=== PATIENT | male | born 1960 | race Caucasian/White ===

== ENCOUNTER → 2017-01-17 | Outpatient (CLI) | payer OTHER | LOC: FIMAGING 13:56 | PROVIDERS: ATTEND Family Medicine Sports Medicine | DX: Z13.820 Encounter for screening for osteoporosis (principal); M85.80 Other specified disorders of bone density and structure, unspecified site; Z82.62 Family history of osteoporosis ==

== ENCOUNTER 2017-03-23 23:43 | Emergency (ER) | payer OTHER ==
[2017-03-24] MEDS ORDERED: NS 1,000 ML IV ONE (00:24)
[2017-03-24 01:21] LABS: ANION GAP 7 mEq/L (8-16); CALCIUM 9.5 mg/dL (8.5-10.4); CARBON DIOXIDE 28 mEq/l (22-31); CHLORIDE 99 mEq/L (97-110); CREATININE 0.8 mg/dL (0.7-1.3); GLOMERULAR FILTRATION RATE > 60; GLUCOSE 95 mg/dL (70-100); SODIUM 134 mEq/L (134-144)
--- NOTE | 2017-03-24 01:41 | EDPHY ---
H & P Stated Complaint: sensation of "head being pulled off", unable to sleep Time Seen by Provider: 03/24/17 00:04 HPI/ROS: Chief Complaint: Dry mouth, uncomfortable head HPI: 57-year-old male with a diagnosis of chronic Lyme disease was lying in bed at 10 o'clock tonight notices mouth particularly dry his hands began tingling in the top of his head became uncomfortable feeling as if it was going to " come off". He did not have a headache or pain but just had the sensation that the top of his head was going to pop off. He is better with standing. He noticed at the same time his hands and feet were red. His heart was pounding. It has some diffuse burning pain. He says he has chronic Lyme disease and Bartonella and BC [place]. These were diagnosed clinically by his Lyme disease doctor in October. Denies any chest pain or shortness of breath. No headache. No nausea or vomiting. No abdominal pain. No fevers or chills. ROS: 10 point Review of Systems is negative except as noted in the HPI. PMH: Lyme disease, hypothyroidism, adrenal insufficiency Medications: Ceftin, hydrocortisone, Synthroid, Indocin Allergies: No known drug allergies Social History: No smoking, no alcohol, no recreational drug use Family History: non-contributory Physical Exam: Gen: Awake, Alert, anxious appearing HEENT: Nose: no rhinorrhea Eyes: PERRLA, EOMI Mouth: Moist mucosa Neck: Supple, no JVD Chest: nontender, lungs clear to auscultation Heart: S1, S2 normal, no murmur Abd: Soft, non-tender, no guarding Back: no CVA tenderness, no midline tenderness Ext: no edema, non-tender Skin: no rash Neuro: CN II-XII intact, Sensation grossly intact, Strength 5/5 in bilateral upper and lower extremities - Personal History Current Tetanus/Diphtheria Vaccine: Yes Current Tetanus Diphtheria and Acellular Pertussis (TDAP): Yes Tetanus Vaccine Date: 2012 - Medical/Surgical History Hx Asthma: No Hx Chronic Respiratory Disease: No Hx Diabetes: No Hx Cardiac Disease: No Hx Renal Disease: No Hx Cirrhosis: No Hx Alcoholism: No Hx HIV/AIDS: No Hx Splenectomy or Spleen Trauma: No Other PMH: lyme disease, schizoaffective d/o, dissociative identity d/o, hypothyroidism - Social History Smoking Status: Never smoked Constitutional: Initial Vital Signs Temperature (C) 36.8 C 03/23/17 23:50 Heart Rate 110 H 03/23/17 23:50 Respiratory Rate 18 03/23/17 23:50 Blood Pressure 129/82 H 03/23/17 23:50 O2 Sat (%) 98 03/23/17 23:50 O2 Delivery Mode Room Air O2 (L/minute) 2 Allergies/Adverse Reactions: No Known Allergies Allergy (Unverified 10/06/12 10:16) Home Medications: Medication Instructions Recorded Acetaminophen [Tylenol ES 500 mg 1,000 mg PO DAILY PRN 12/19/14 (*)] Cefuroxime Axetil [Cefuroxime] 500 mg PO BIDMEAL 12/19/14 Cyanocobalamin [Vitamin B12 1,000 mcg IM MOTH@12/19/14 1000MCG/ML (*)] Herbals/Supplements -Info Only 1 ea PO DAILY 12/19/14 Hydrocortisone [Cortef] 5 mg PO BID@07,14 12/19/14 Lactobacil 2-S.thermo-Bifido 1 0.5 packet PO DAILY@17 12/19/14 [VSL#3 DS PACKET] Levomefolate/Algal Oil 1 each PO MOTHSA@12/19/14 [[place]plin-Algal Oil 15 mg Capsule] Levothyroxine [Synthroid 50 mcg 50 mcg PO DAILY06 12/19/14 (*)] Liothyronine Sodium [Cytomel 5 mcg 10 mcg PO DAILY 12/19/14 (*)] Nystatin [Mycostatin] 2 tab PO BIDAC 12/19/14 Testosterone Cypionate 100 mg IM Q14D@12/19/14 Zolpidem Tartrate [Ambien 10 mg] 10 mg PO HS 12/19/14 Medical Decision Making ED Course/Re-evaluation: 57-year-old male who appears very anxious here with some very vague nonspecific symptoms of dry mouth hands tingling. He is under the care of a doctor in [place] Dr. Cristóbal Conrad, a family practice Lyme disease specialist. He has not cared for by a salt cutter or [employer] service technician. He has a normal exam here. Electrolytes are normal. Vital signs are normal with the exception of initial tachycardia which has since resolved. Symptoms are more consistent with a likely anxiety reaction. He has been hydrated here. He has been reassured. No evidence of acute infectious process. Will follow up with his primary care physician as needed. - Data Points Laboratory Results: Laboratory Results 03/24/17 00:38 03/24/17 00:38 Sodium 134 mEq/L mEq/L (134-144) Potassium 4.0 mEq/L mEq/L (3.5-5.2) Chloride 99 mEq/L mEq/L (97-110) Carbon Dioxide 28 mEq/l mEq/l (22-31) Anion Gap 7 mEq/L L mEq/L (8-16) BUN 20 mg/dL mg/dL (7-23) Creatinine 0.8 mg/dL mg/dL (0.7-1.3) Estimated GFR > 60 Glucose 95 mg/dL mg/dL (70-100) Calcium 9.5 mg/dL mg/dL (8.5-10.4) Medications Given: Discontinued Medications Sodium Chloride (Ns) 1,000 mls @ 0 mls/hr IV ONCE ONE PRN Reason: Wide Open Stop: 03/24/17 00:25 Last Admin: 03/24/17 00:48 Dose: 1,000 mls Departure - Departure Disposition: Home, Routine, Self-Care Clinical Impression: Paresthesia, Dehydration Condition: Good Instructions: Paresthesia (ED) Additional Instructions: Follow up with primary care physician in 3-4 days for re-evaluation. Referrals: Ac Trivedi MD [Primary Care Provider] - As per Instructions
[2017-03-24 02:17] VITALS: BP 124/67; PULSE 97; RESP 16; TEMP 98.4; O2SAT 100
== END 2017-03-24 02:15 | disposition home or self-care (01) ==
LOC: EDUNIT#
DX: E86.0 Dehydration (principal); R20.2 Paresthesia of skin

== ENCOUNTER → 2017-05-05 | Outpatient (CLI) | payer OTHER | LOC: FIMAGING 14:09 | PROVIDERS: ATTEND Internal Medicine Endocrinology, Diabetes & Metabolism | DX: E04.9 Nontoxic goiter, unspecified (principal) ==

== ENCOUNTER 2017-11-02 01:05 | Emergency (ER) | payer OTHER ==
[2017-11-02 01:14] VITALS: TEMP 98.1; O2SAT 95
[2017-11-02] MEDS ORDERED: NS 1,000 ML IV ONE (01:27)
[2017-11-02] MEDS ORDERED: KETOROLAC 15 MG/1 ML SDV IVP ONE (01:27)
[2017-11-02 01:32] LABS: % IMMATURE GRANULYOCYTES 0.1 % (0.0-1.1); ABSOLUTE IMMATURE GRANULOCYTES 0.01 10^3/uL (0.00-0.10); ADD DIFF? NO; ADD MORPH? NO; ADD SCAN? NO; ATYPICAL LYMPHOCYTE FLAG 10 (0-99); FRAGMENT RBC FLAG 0 (0-99); HEMATOCRIT 44.1 % (40.0-51.0); HEMOGLOBIN 15.9 g/dL (13.7-17.5); LEFT SHIFT FLG 0 (0-99); LIPEMIA HEMOLYSIS FLAG 90 (0-99); MEAN CELL HEMOGLOBIN 34.9 pg (27.9-34.1); MEAN CELL HEMOGLOBIN CONCENTR. 36.1 g/dL (32.4-36.7); MEAN CELL VOLUME 96.9 fL (81.5-99.8); MEAN PLATELET VOLUME 8.8 fL (8.7-11.7); PLATELET CLUMPS FLAG 0 (0-99); PLATELET COUNT 161 10^3/uL (150-400); RED BLOOD CELL COUNT 4.55 10^6/uL (4.40-6.38)
[2017-11-02 01:38] LABS: ALANINE AMINOTRANSFERASE 75 IU/L (21-72); ALBUMIN 4.1 g/dL (3.5-5.0); ALKALINE PHOSPHATASE 87 IU/L (38-126); ANION GAP 14 mEq/L (8-16); ASPARTATE AMINOTRANSFERASE 53 IU/L (17-59); BILIRUBIN,TOTAL 0.4 mg/dL (0.1-1.4); CALCIUM 9.6 mg/dL (8.5-10.4); CARBON DIOXIDE 29 mEq/l (22-31); CHLORIDE 100 mEq/L (97-110); GLOMERULAR FILTRATION RATE > 60; GLUCOSE 128 mg/dL (70-100); POTASSIUM 3.7 mEq/L (3.5-5.2); SODIUM 143 mEq/L (134-144); TOTAL PROTEIN 6.4 g/dL (6.3-8.2)
[2017-11-02 04:05] VITALS: RESP 12
--- NOTE | 2017-11-02 04:41 | EDPHY ---
H & P Stated Complaint: Head Ache Time Seen by Provider: 11/02/17 01:11 HPI/ROS: HPI The patient presents brought in by ambulance for headache which began several hours prior to presentation while he was getting into bed. The headache is throbbing in nature, in his occipital region, and radiates throughout his head, it does have a pressure-like component to it. The patient saw his a splash of paint transiently in his visual field with this headache, this is now completely resolved. He says he feels tingling throughout his hands and feet. He has a history of headaches comma normally they affect his left frontal region and feels like a migraine. He also has another type of headache that feels like his head is wearing a hat when it is not. He has not had any nausea or vomiting with this. He has not taken any medications for this though he is prescribed Fioricet for headache. REVIEW OF SYSTEMS Constitutional: No fever, no chills. Eyes: No discharge. ENT: No sore throat. Cardiovascular: No chest pain, no palpitations. Respiratory: No cough, no shortness of breath. Gastrointestinal: No abdominal pain, no vomiting. Genitourinary: No hematuria. Musculoskeletal: No back pain. Skin: No rashes. Neurological: Positive for headache. PMHx: Chronic Lyme disease Soc Hx: Housed PHYSICAL General Appearance: Alert, no distress Eyes: Pupils equal and round no pallor or injection ENT, Mouth: Mucous membranes moist Respiratory: There are no retractions, lungs are clear to auscultation Cardiovascular: Tachycardic rate and regular rhythm Gastrointestinal: Abdomen is soft and non-tender, no masses, bowel sounds normal Neurological: Alert and oriented x3, cranial nerves 2-12 intact, 5/5 strength in upper and lower extremities which is symmetric Skin: Warm and dry, no rashes Musculoskeletal: Neck is supple non tender Extremities: symmetrical, full range of motion Psychiatric: Patient is oriented X 3, there is no agitation Source: Patient Exam Limitations: No limitations - Personal History Current Tetanus/Diphtheria Vaccine: Yes Current Tetanus Diphtheria and Acellular Pertussis (TDAP): Yes Tetanus Vaccine Date: 2012 - Medical/Surgical History Hx Asthma: No Hx Chronic Respiratory Disease: No Hx Diabetes: No Hx Cardiac Disease: No Hx Renal Disease: No Hx Cirrhosis: No Hx Alcoholism: No Hx HIV/AIDS: No Hx Splenectomy or Spleen Trauma: No Other PMH: lyme disease, schizoaffective d/o, dissociative identity d/o, hypothyroidism - Social History Smoking Status: Never smoked Constitutional: Initial Vital Signs Temperature (C) 36.7 C 11/02/17 01:10 Heart Rate 113 H 11/02/17 01:10 Respiratory Rate 16 11/02/17 01:10 Blood Pressure 128/81 H 11/02/17 01:10 O2 Sat (%) 95 11/02/17 01:10 O2 Delivery Mode Room Air Allergies/Adverse Reactions: No Known Allergies Allergy (Unverified 11/02/17 01:09) Home Medications: Medication Instructions Recorded Acetaminophen [Tylenol ES 500 mg 1,000 mg PO DAILY PRN 12/19/14 (*)] Cefuroxime Axetil [Cefuroxime] 500 mg PO BIDMEAL 12/19/14 Cyanocobalamin [Vitamin B12 1,000 mcg IM MOTH@12/19/14 1000MCG/ML (*)] Herbals/Supplements -Info Only 1 ea PO DAILY 12/19/14 Hydrocortisone [Cortef] 5 mg PO BID@,14 12/19/14 Lactobacil 2-S.thermo-Bifido 1 0.5 packet PO DAILY@12/19/14 [VSL#3 DS PACKET] Levomefolate/Algal Oil 1 each PO MOTHSA@12/19/14 [[place]pl[place]-Algal Oil 15 mg Capsule] Levothyroxine [Synthroid 50 mcg 50 mcg PO DAILY06 12/19/14 (*)] Liothyronine Sodium [Cytomel 5 mcg 10 mcg PO DAILY 12/19/14 (*)] Nystatin [Mycostatin] 2 tab PO BIDAC 12/19/14 Testosterone Cypionate 100 mg IM Q14D@12/19/14 Zolpidem Tartrate [Ambien 10 mg] 10 mg PO HS 12/19/14 Medical Decision Making Differential Diagnosis: This is a 57-year-old male who presents brought in by ambulance with headache which started while trying to sleep. It is occipital, throbbing and pressure- like in nature. It is associated with paresthesias of his arms and legs. He has history of headaches, though this is slightly different in nature. His headache started slowly, he does not have any neurologic deficits except for the paresthesias in his hands and feet. He does not have any vomiting or visual changes. Differential diagnosis includes migraine headache, tension type headache, sinusitis. I doubt subarachnoid hemorrhage given no neurologic deficits. In the emergency department, patient was given IV fluids and Toradol with improvement in his symptoms. His heart rate improved. Basic labs were unremarkable. He felt well enough to go home. I feel he is likely suffering from a tension type headache and I have explained this to him. - Data Points Laboratory Results: Laboratory Results 11/02/17 01:20 11/02/17 01:20 11/02/17 11/02/17 01:20 01:20 WBC 7.79 10^3/uL 10^3/uL (3.80-9.50) RBC 4.55 10^6/uL 10^6/uL (4.40-6.38) Hgb 15.9 g/dL g/dL (13.7-17.5) Hct 44.1 % % (40.0-51.0) MCV 96.9 fL fL (81.5-99.8) MCH 34.9 pg H pg (27.9-34.1) MCHC 36.1 g/dL g/dL (32.4-36.7) RDW 12.0 % % (11.5-15.2) Plt Count 161 10^3/uL 10^3/uL (150-400) MPV 8.8 fL fL (8.7-11.7) Neut % (Auto) 51.5 % % (39.3-74.2) Lymph % (Auto) 39.4 % % (15.0-45.0) [place] % (Auto) 6.9 % % (4.5-13.0) Eos % (Auto) 1.3 % % (0.6-7.6) Baso % (Auto) 0.8 % % (0.3-1.7) Nucleat RBC Rel Count 0.0 % % (0.0-0.2) Absolute Neuts (auto) 4.01 10^3/uL 10^3/uL (1.70-6.50) Absolute Lymphs (auto) 3.07 10^3/uL H 10^3/uL (1.00-3.00) Absolute Monos (auto) 0.54 10^3/uL 10^3/uL (0.30-0.80) Absolute Eos (auto) 0.10 10^3/uL 10^3/uL (0.03-0.40) Absolute Basos (auto) 0.06 10^3/uL 10^3/uL (0.02-0.10) Absolute Nucleated RBC 0.00 10^3/uL 10^3/uL (0-0.01) Immature Gran % 0.1 % % (0.0-1.1) Immature Gran # 0.01 10^3/uL 10^3/uL (0.00-0.10) Sodium 143 mEq/L mEq/L (134-144) Potassium 3.7 mEq/L mEq/L (3.5-5.2) Chloride 100 mEq/L mEq/L (97-110) Carbon Dioxide 29 mEq/l mEq/l (22-31) Anion Gap 14 mEq/L mEq/L (8-16) BUN 24 mg/dL H mg/dL (7-23) Creatinine 1.0 mg/dL mg/dL (0.7-1.3) Estimated GFR > 60 Glucose 128 mg/dL H mg/dL (70-100) Calcium 9.6 mg/dL mg/dL (8.5-10.4) Total Bilirubin 0.4 mg/dL mg/dL (0.1-1.4) AST 53 IU/L IU/L (17-59) ALT 75 IU/L H IU/L (21-72) Alkaline Phosphatase 87 IU/L IU/L (38-126) Total Protein 6.4 g/dL g/dL (6.3-8.2) Albumin 4.1 g/dL g/dL (3.5-5.0) Medications Given: Discontinued Medications Sodium Chloride (Ns) 1,000 mls @ 0 mls/hr IV EDNOW ONE; Wide Open PRN Reason: Protocol Stop: 11/02/17 01:28 Last Admin: 11/02/17 01:35 Dose: 1,000 mls Ketorolac Tromethamine (Toradol) 15 mg IVP EDNOW ONE Stop: 11/02/17 01:28 Last Admin: 11/02/17 01:34 Dose: 15 mg Departure - Departure Disposition: Home, Routine, Self-Care Clinical Impression: Paresthesia Headache Qualifiers: Headache type: unspecified Headache chronicity pattern: acute headache Intractability: not intractable Qualified Code(s): R51 - Headache Condition: Good Instructions: Tension Headache (ED) Additional Instructions: Please return to the ER if you are worse in any way. Referrals: Ac Trivedi MD [Primary Care Provider] - As per Instructions [facility] [Provider Group] - As per Instructions
[2017-11-02 04:53] VITALS: BP 119/64; PULSE 86
== END 2017-11-02 04:56 | disposition home or self-care (01) ==
LOC: EDUNIT#
PROC: 3E0337Z Introduction of Electrolytic and Water Balance Substance into Peripheral Vein, Percutaneous Approach (ICD-10-PCS; principal; 2017-11-02)
DX: R51 Headache (principal); R20.2 Paresthesia of skin; E86.9 Volume depletion, unspecified
CPT/HCPCS: 96361; 96374; 99284; J1885

== ENCOUNTER → 2017-11-21 | Outpatient (CLI) | payer OTHER | LOC: FIMAGING 08:01 | PROVIDERS: ATTEND Psychiatry & Neurology Neurology | DX: R93.0 Abnormal findings on diagnostic imaging of skull and head, not elsewhere classified (principal); G43.009 Migraine without aura, not intractable, without status migrainosus; F41.9 Anxiety disorder, unspecified ==

== ENCOUNTER → 2018-08-28 | Outpatient (CLI) | payer OTHER ==
[~2018-08-28] MED LIST: IOPAMIDOL (ISOVUE-300) 100 ML BTL ONE
== END ==
LOC: FIMAGING 10:50
PROVIDERS: ATTEND Family Medicine Sports Medicine
DX: N20.0 Calculus of kidney (principal); K59.00 Constipation, unspecified; Z96.642 Presence of left artificial hip joint
CPT/HCPCS: 74177; Q9967

== ENCOUNTER → 2018-10-05 | Outpatient (CLI) | payer OTHER | LOC: BHFA 14:00 | PROVIDERS: ATTEND Internal Medicine Interventional Cardiology | DX: I25.10 Atherosclerotic heart disease of native coronary artery without angina pectoris (principal) ==

== ENCOUNTER → 2018-10-29 | Outpatient (CLI) | payer OTHER | LOC: BHFA 13:15 | PROVIDERS: ATTEND Internal Medicine Cardiovascular Disease | DX: I25.10 Atherosclerotic heart disease of native coronary artery without angina pectoris (principal) ==